=== PATIENT | male | born 1990 | race American Indian/Alaskan Native ===

== ENCOUNTER 2016-08-25 09:23 | Emergency (ER) | payer MEDICAID, OTHER ==
[2016-08-25] MEDS ORDERED: MOTRIN PO ONE (12:47)
--- NOTE | 2016-08-25 13:43 | XRay Report ---
LEFT HUMERUS: History: Left arm pain. AP and lateral views of the humerus demonstrate normal mineralization and contours for this patient's age. No destructive changes are noted and the adjacent soft tissues are normal. IMPRESSION: Normal left humerus.
--- NOTE | 2016-08-25 13:43 | XRay Report ---
LEFT ANKLE, 3 views: History: Pain and swelling. Moderate soft tissue swelling or edema is evident. There is no evidence for acute fracture or malalignment. Chronic calcifications distal to the fibula of uncertain significance. IMPRESSION: Soft tissue swelling. No acute bony injury appreciated.
--- NOTE | 2016-08-25 13:44 | XRay Report ---
LEFT SHOULDER: History: Left shoulder pain. Routine views demonstrate normal bony and soft tissue structures with normal joint alignment of the shoulder. IMPRESSION: Normal study.
[2016-08-25 14:11] VITALS: BP 143/83
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
== END 2016-08-25 14:18 | disposition home or self-care (01) ==
LOC: ED 09:23
DX: S46.912A Strain of unspecified muscle, fascia and tendon at shoulder and upper arm level, left arm, initial encounter (principal); S13.4XXA Sprain of ligaments of cervical spine, initial encounter; S96.912A Strain of unspecified muscle and tendon at ankle and foot level, left foot, initial encounter; V49.49XA Driver injured in collision with other motor vehicles in traffic accident, initial encounter; Y93.9 Activity, unspecified; Y92.9 Unspecified place or not applicable; Y99.9 Unspecified external cause status
CPT/HCPCS: 99283

== ENCOUNTER 2017-02-11 11:46 | Emergency (ER) | payer SELFPAY ==
[2017-02-11 12:48] LABS: Basophils % (Auto) 1.1 % (0.0-1.8); Eosinophils % (Auto) 6.6 % (0.0-4.3); Hematocrit 48.5 % (35.5-45.6); Hemoglobin 16.3 gm/dl (11.8-15.2); Mean Corpuscular HGB Conc 34 % (32-34); Mean Corpuscular Hemoglobin 30 pg (28-32); Mean Corpuscular Volume 90 fl (84-94); Platelet Count 292 K/mm3 (140-440); Red Blood Count 5.41 M/mm3 (3.65-5.03); Red Cell Distribution Width 13.2 % (13.2-15.2); White Blood Count 10.6 K/mm3 (4.5-11.0)
[2017-02-11 12:57] LABS: INR 0.87 (0.87-1.13)
[2017-02-11 12:58] LABS: Partial Thromboplastin Time 29.2 Sec. (24.2-36.6)
[2017-02-11 12:59] LABS: Anion Gap 18 mmol/L; BUN/Creatinine Ratio 13; Blood Urea Nitrogen 9 mg/dL (9-20); Calcium 8.7 mg/dL (8.4-10.2); Carbon Dioxide 25 mmol/L (22-30); Glucose 104 mg/dL (75-100); Potassium 4.2 mmol/L (3.6-5.0); Sodium 141 mmol/L (137-145)
[2017-02-11 20:05] VITALS: BP 90/50
== END 2017-02-11 22:50 | disposition left against medical advice (07) ==
LOC: ED 11:46
DX: J11.1 Influenza due to unidentified influenza virus with other respiratory manifestations (principal); Z53.21 Procedure and treatment not carried out due to patient leaving prior to being seen by health care provider
CPT/HCPCS: 36415; 80048; 84484; 85025; 85610; 85730; 86850; 86900; 86901; 93005; 93010

== ENCOUNTER 2021-06-20 18:03 | Emergency (ER) | payer OTHER ==
[2021-06-20 18:20] VITALS: BP 185/114
== END 2021-06-21 00:04 | disposition left against medical advice (07) ==
LOC: ED 18:03
DX: I10 Essential (primary) hypertension (principal); Z53.21 Procedure and treatment not carried out due to patient leaving prior to being seen by health care provider

== ENCOUNTER 2021-07-24 04:38 | Emergency (ER) | payer OTHER ==
[2021-07-24 04:46] VITALS: BP 180/90
[2021-07-24] MEDS ORDERED: KETOROLAC 60 MG/2 ML INJ IM STA (06:01)
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
--- NOTE | 2021-07-24 07:04 | XRay Report ---
RIGHT KNEE 4 VIEW(S) INDICATION / CLINICAL INFORMATION: fall knee pain COMPARISON: None available. FINDINGS: BONES / JOINT(S): No acute fracture or subluxation. Advanced compartmental osteoarthrosis of the righ t knee. No superimposed acute fracture. SOFT TISSUES: No significant abnormality. ADDITIONAL FINDINGS: None. IMPRESSION: 1.No evidence of acute osseous pathology. Signer Name: Tiburcio Collins II, MD Signed: 07/24/2021 6:59 AM Workstation Name: [id number]
--- NOTE | 2021-07-24 07:05 | XRay Report ---
CERVICAL SPINE 5 VIEWS INDICATION / CLINICAL INFORMATION: neck pain. COMPARISON: None available. FINDINGS: VERTEBRAE: No acute fracture. Limited visibility of the cervical spine lateral images. Normal alignme nt through C6. DISC SPACES / FACET JOINTS:No significant abnormality. PARASPINAL SOFT TISSUES:No significant abnormality. ADDITIONAL FINDINGS: None. IMPRESSION: Limited visibility of the cervical vertebral bodies on the lateral images. No fractures are clearly d emonstrated involving C3 through C6. Signer Name: Tiburcio Collins II, MD Signed: 07/24/2021 7:01 AM Workstation Name: [id number]
--- NOTE | 2021-07-24 07:06 | XRay Report ---
LUMBAR SPINE 2 VIEWS INDICATION / CLINICAL INFORMATION: fall back pain. COMPARISON: None available. FINDINGS: VERTEBRAE: No acute fracture. No significant malalignment. DISC SPACES / FACET JOINTS:No significant abnormality. PARASPINAL SOFT TISSUES:No significant abnormality. ADDITIONAL FINDINGS: None. IMPRESSION: 1. No significant degenerative changes, no acute findings. Signer Name: Tiburcio Collins II, MD Signed: 07/24/2021 7:01 AM Workstation Name: [id number]
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
[2021-07-24] MEDS ORDERED: HYDROcodone/ACETAMINOPHEN 5-325 MG TAB PO STA (07:28)
== END 2021-07-24 10:58 ==
LOC: ED 04:38
DX: M54.9 Dorsalgia, unspecified (principal); Z91.013 Allergy to seafood; F17.200 Nicotine dependence, unspecified, uncomplicated
CPT/HCPCS: 72040; 72100; 73564; 73610; 96372; 99283; J1885